=== PATIENT | male | born 1980 | race Two or more races ===

== ENCOUNTER → 2017-02-03 | Outpatient (REF) | payer OTHER, SELFPAY ==
[~2017-02-03] MED LIST: BACT800T5 PO; MIRT30TA2 PO; NAPR125S4 PO; ROBA500T PO; TYLE650T35 PO
[2017-02-03 10:01] LABS: IMMMOTILE SPERM CENTRIFUGED ABSENT (ABSENT); IMMOTILE SPERM ABSENT (ABSENT); MOTILE SPERM ABSENT (ABSENT); MOTILE SPERM CENTRIFUGED ABSENT (ABSENT); SPERM ABNORMAL FORMS WBC'S NOTED
== END ==
LOC: M SMT 09:45
PROVIDERS: ATTEND Nurse Practitioner Women's Health
DX: N46.023 Azoospermia due to obstruction of efferent ducts (principal)

== ENCOUNTER 2017-02-10 21:52 | Emergency (ER) | payer OTHER ==
[~2017-02-10] VITALS: Ht 165.1 cm; Wt 76.6 kg
[~2017-02-10 21:52] MED LIST changes: -ACETAMINOPHEN 650MG ER TAB (TYLENOL ARTHRITIS) PO SCH; -BACTRIM 160MG/800MG DS TAB PO SCH; -GLYCOPYRROLATE INJ 0.2 MG/ML 2 ML VIAL As Ordered ONE; -KETOROLAC 60 MG/2 ML VIAL (J1885) As Ordered ONE; -LIDOCAINE 1% SDV INJ 30 ML VIAL As Ordered ONE; -LIDOCAINE 2% INJ 100 MG/5 ML SDV (FOR ANES.) As Ordered ONE; -LR 1,000 ML IV SCH; -METHYLENE BLUE 0.5% (5MG/ML) 10 ML AMP (PROVAYBLUE)(Q9968 PER 1MG) As Ordered ONE; -MIDAZOLAM INJ 2 MG/2 ML VIAL (J2250) As Ordered ONE; -NEOSTIGMINE 1MG/ML 5 ML SYRINGE (J2710) As Ordered ONE; -ONDANSETRON 4MG/2ML VIAL (J2405) As Ordered ONE; -ONDANSETRON 4MG/2ML VIAL (J2405) IV PRN; -PERCOCET 5MG/325MG TAB As Ordered ONE; -POLYSPORIN TOPICAL OINTMENT 15GM As Ordered ONE; -PROPOFOL 200 MG/20 ML VIAL As Ordered ONE; -ROCURONIUM BROMIDE 50 MG/5 ML VIAL/SYRINGE As Ordered ONE; -dexameTHASONE 4 MG/ML 1ML VIAL (J1100) As Ordered ONE; -fentaNYL 100 MCG/2 ML INJECTION (J3010) IV PRN; -fentaNYL 250 MCG/5 ML INJECTION (J3010) As Ordered ONE
--- NOTE | 2017-02-10 23:00 | REPUSA ---
Clinical history: swelling. Findings: Real-time ultrasound imaging of the testicles and scrotum was performed. The right testicle measures 4.4 x 2.8 x 2.7 cm. The left testicle measures 4.6 x 2.9 x 2.6 cm. The testicles demonstr ate normal echo texture and echogenicity. Normal color Doppler flow and arterial waveforms are seen b ilaterally. There is a large complex fluid collection surrounding the entirety of the left testicle, measuring approximately 10.0 x 5.9 x 7.1 cm. Impression: 1. A large complex fluid collection in the left scrotum surrounding the left testicle. This likely re presents a large hematoma. Follow-up is suggested as clinically indicated. 2. Testicles are grossly unremarkable. No evidence of testicular torsion.
[2017-02-10] MEDS ORDERED: OXYCODONE/APAP 5MG/325MG(BULK FOR ED) 1 TABLET PO ONE (23:15)
[2017-02-10 23:23] VITALS: BP 124/62
== END 2017-02-10 23:24 | disposition home or self-care (01) ==
LOC: M ED 21:52
DX: L76.32 Postprocedural hematoma of skin and subcutaneous tissue following other procedure (principal); N46.8 Other male infertility; N46.023 Azoospermia due to obstruction of efferent ducts; E78.00 Pure hypercholesterolemia, unspecified; K21.9 Gastro-esophageal reflux disease without esophagitis; M12.9 Arthropathy, unspecified; M54.9 Dorsalgia, unspecified; F41.9 Anxiety disorder, unspecified; G43.909 Migraine, unspecified, not intractable, without status migrainosus; F40.240 Claustrophobia; F43.10 Post-traumatic stress disorder, unspecified; F17.290 Nicotine dependence, other tobacco product, uncomplicated; Z79.899 Other long term (current) drug therapy
CPT/HCPCS: 55400; 76870; 88108; 88172; 93976; 99282; J0690; J1100; J1885; J2250; J2405; J2710; J3010; Q9968

== ENCOUNTER → 2017-02-10 | Day surgery (SDC) | payer OTHER ==
[~2017-02-10] VITALS: Ht 165.1 cm; Wt 74.8 kg
[~2017-02-10] MED LIST changes: +ACETAMINOPHEN 650MG ER TAB (TYLENOL ARTHRITIS) PO SCH; +BACTRIM 160MG/800MG DS TAB PO SCH; +GLYCOPYRROLATE INJ 0.2 MG/ML 2 ML VIAL As Ordered ONE; +KETOROLAC 60 MG/2 ML VIAL (J1885) As Ordered ONE; +LIDOCAINE 1% SDV INJ 30 ML VIAL As Ordered ONE; +LIDOCAINE 2% INJ 100 MG/5 ML SDV (FOR ANES.) As Ordered ONE; +LR 1,000 ML IV SCH; +METHYLENE BLUE 0.5% (5MG/ML) 10 ML AMP (PROVAYBLUE)(Q9968 PER 1MG) As Ordered ONE; +MIDAZOLAM INJ 2 MG/2 ML VIAL (J2250) As Ordered ONE; +NEOSTIGMINE 1MG/ML 5 ML SYRINGE (J2710) As Ordered ONE; +ONDANSETRON 4MG/2ML VIAL (J2405) As Ordered ONE; +ONDANSETRON 4MG/2ML VIAL (J2405) IV PRN; +PERCOCET 5MG/325MG TAB As Ordered ONE; +POLYSPORIN TOPICAL OINTMENT 15GM As Ordered ONE; +PROPOFOL 200 MG/20 ML VIAL As Ordered ONE; +ROCURONIUM BROMIDE 50 MG/5 ML VIAL/SYRINGE As Ordered ONE; +dexameTHASONE 4 MG/ML 1ML VIAL (J1100) As Ordered ONE; +fentaNYL 100 MCG/2 ML INJECTION (J3010) IV PRN; +fentaNYL 250 MCG/5 ML INJECTION (J3010) As Ordered ONE
[2017-02-10] MEDS: PERCOCET 5MG/325MG TAB PO PRN ×2 (12:22→13:01)
[2017-02-10 13:50] VITALS: BP 127/84
--- NOTE | 2017-02-11 09:27 | RO ---
DATE OF PROCEDURE: 02/10/2017 PREOPERATIVE DIAGNOSIS: Infertility. POSTOPERATIVE DIAGNOSIS: Infertility. SURGERY PERFORMED: Bilateral microsurgical vasovasostomy. SURGEON: Dr. Aramis Ramos TELEPHONE QUOTATION CLERK: None. ANESTHESIA: General. COMPLICATIONS: None. ESTIMATED BLOOD LOSS: 10 mL. FINDINGS: History of bilateral vasectomies. HISTORY OF PRESENT ILLNESS: 37-year-old male patient that had bilateral vasectomies done. He wants a vasectomy reversal. For this reason, he has been consented for a bilateral microsurgical vasovasostomy. PROCEDURE DESCRIPTION: In a patient under general anesthesia in supine position , after prepping and draping the area of concern, which included the entire genitalia and penile shaft, we inserted a 16 [place] catheter and inflated the balloon to 10 mL to drain the bladder. We then proceeded to palpate the left side of the vas deferens. It was very difficult to palpate the left side of the vas deferens. We could palpate the vas deferens at 4 cm below the external inguinal ring and the other part of the vas deferens actively was about 2 cm above the epididymis. For this reason, we decided to do a midline incision. Through this midline incision with a cold knife 15 blade cleve. Through this incision, we exteriorized the left testicle and opened the tunica vaginalis longitudinally and everted the tunica vaginalis with a #3-0 chromic in a running fashion. We then proceeded to identify the distal end of the vas deferens. There was only like about 3 cm left of the distal end of the vas deferens toward the epididymis. We dissected it and put in the base of the vas deferens a #3-0 chromic. We then dissected the proximal end of the vas deferens, which was about 3 cm away from the area of the inguinal canal. We dissected and we could actively see that it could reach very well. For this reason, we placed a #3-0 chromic also, a stay suture, and then cut both ends of the vas deferens. Then, collected some seminal fluid for microscopic analysis. Pathology saw viable sperm and for this reason we decided to do a vasovasostomy on the left side. Using an electro microscope, we actively did a microsurgical vasostostomy. We used methylene blue to actively dye both ends of the vas deferens and identify the lumen of both ends. Using an #8-0 double needled Prolene suture, we actively went inside out in the vas deferens on one side and inside out in the other end times three at 6 o'clock, 5 o'clock and 7 o'clock. Then, tied the knots times five. We then proceeded to approximate with #8-0 double needle suture also at 10 o'clock and 2 o'clock. Once this was done, we placed #8-0 serosa to serosa stitches between the other stitches for a total of 7 stitches. We then dropped the vas deferens anastomosis into the scrotal sac and closed the scrotal sac with #3-0 chromic in a running fashion and the skin with #3-0 Monocryl in a running fashion. There were no complications. We then switched sides and tried to palpate the right vas deferens. It was the same findings. There was a very lengthy extension between the proximal and distal vas deferens from the vasectomy. For this reason, we actively did also a transverse incision on the right hemiscrotal sac. With the Bovie cautery, we opened the scrotal sac and then exteriorized the testicle. We did not open the tunica vaginalis in this side since we found the vas deferens easily in the spermatic cord. We could dissect the vas deferens for about 5 cm proximally and then put a stay suture with chromic. We then proceeded to actively cut and stain the lumen of the vas deferens with methylene blue. We then proceeded to actively dissect the distal portion of the vas deferens toward the epididymis. It was a short vas deferens. We cut the tip and we could see some of the fluid coming out. We actively collected it with the slide and under microscopy pathology actively confirmed that there was viable sperm. For this reason, we proceeded to do a right sided microsurgical vasovasostomy. We used again #8-0 double needle Prolene stitches inside out on both lumens and tied a knot outside at 5 o'clock, 7 o'clock and 6 o'clock. Then, at 2 o'clock and 10 o'clock. We also used #10-0 Prolene between the stitches for a total of 7 stitches. We then dropped the vasovasostomy anastomosis into the scrotal sac and closed the scrotal sac in one layer with a running #3-0 chromic and the skin with #3-0 Monocryl in a running fashion. We then placed bacitracin cream, fluffs and a scrotal support. PLAN: The patient will go home today with Bactrim and he will actively be discharged home today. He will have Tylenol for pain 650 mg extended release one every 8 hours. He may shower in three days. He may not use bicycle, motorcycle or horse ride. He cannot have sex or any type of ejaculation for 8 weeks. MADDIE
== END | disposition home or self-care (01) ==
LOC: M SDC 06:13
PROVIDERS: ATTEND Urology
DX: N46.023 Azoospermia due to obstruction of efferent ducts (principal); N46.8 Other male infertility; E78.00 Pure hypercholesterolemia, unspecified; K21.9 Gastro-esophageal reflux disease without esophagitis; M12.9 Arthropathy, unspecified; M54.9 Dorsalgia, unspecified; F41.9 Anxiety disorder, unspecified; G43.909 Migraine, unspecified, not intractable, without status migrainosus; F40.240 Claustrophobia; F43.10 Post-traumatic stress disorder, unspecified; F17.290 Nicotine dependence, other tobacco product, uncomplicated; Z79.899 Other long term (current) drug therapy

== ENCOUNTER → 2017-04-23 | Outpatient (REF) | payer OTHER ==
[2017-04-23 11:46] LABS: #IMMOTILE SPERM COUNTED 1; #MOTILE SPERM COUNTED 1; % MOTILITY 50 (> 40%); TOTAL # SPERM COUNTED 2 M/ml
== END | disposition home or self-care (01) ==
LOC: M SMT 11:25
PROVIDERS: ATTEND Urology
DX: N46.023 Azoospermia due to obstruction of efferent ducts (principal); Z31.0 Encounter for reversal of previous sterilization

== ENCOUNTER → 2023-12-20 | Outpatient (CLI) | payer OTHER ==
[~2023-12-20] MED LIST changes: +ACET650T61 PO; +MIRT1TAB16 PO; -MIRT30TA2 PO; +ROSU20TA61 PO; -TYLE650T35 PO
== END ==
LOC: M RAD 08:49
PROVIDERS: ATTEND Internal Medicine Hematology & Oncology
DX: D75.1 Secondary polycythemia (principal); K76.0 Fatty (change of) liver, not elsewhere classified; I77.811 Abdominal aortic ectasia